=== PATIENT | male | born 1935 | race Caucasian/White ===

== ENCOUNTER 2017-11-06 12:04 | Outpatient (CLI) | payer MEDICARE ==
[2017-11-06 14:18] LABS: Bilirubin Negative (Negative); Blood, Urine Negative (Negative); Clarity CLEAR (Clear); Glucose, Urine (Dipstick) Negative (Negative); Leukocyte Negative (Negative); Nitrite Negative (Negative); Protein, Urine (Dipstick) Negative (Neg-Trace); Specific Gravity, Urine 1.015 (1.002-1.036); Urobilinogen 0.2 mg/dL (0.2-1.0)
[2017-11-06 14:20] LABS: Hemoglobin 14.7 g/dL (14.0-18.0); Mean Corpuscular HGB CONC 33.7 g/dL (32.0-36.0); Mean Corpuscular Hemoglobin 34.5 pg (27.0-31.0); Mean Platelet Volume 7.7 fL (7.4-10.4); Platelet Count 151 thou/uL (130-400); RBC Distribution Width 11.8 % (11.5-14.5); Red Blood Cell (RBC) Count 4.26 mill/uL (4.70-6.10); White Blood Cell (WBC) Count 5.5 thou/uL (4.8-10.8)
[2017-11-06 14:21] LABS: Bacteria/HPF None Seen HPF (None Seen); Hyaline Casts/LPF 0-3 HYALINE CAST LPF (0-3 Hyaline); RBC/HPF 0-3 HPF (0-3); Squamous Epithelial None Seen HPF (0-3); WBC/HPF None Seen HPF (0-3)
[2017-11-06 14:26] LABS: INR-International Normal Ratio 1.2; PTT 29.8 SEC (22.9-36.1); Prothrombin Time 15.7 SEC (12.0-14.7)
[2017-11-06 14:55] LABS: Anion Gap 11 mmol/L (10-20); BUN (Urea Nitrogen) 20 mg/dL (8.4-25.7); Calc. Creatinine Clearance 0 mL/min (70-130); Calcium 8.9 mg/dL (7.8-10.44); Carbon Dioxide 27 mmol/L (23-31); Chloride 103 mmol/L (98-107); Estimated GFR-MDRD 77; Glucose 111 mg/dL (83-110); Potassium 4.3 mmol/L (3.5-5.1); Sodium 137 mmol/L (136-145)
--- NOTE | 2018-01-05 21:51 | EKG ---
Test Reason : Blood Pressure : / mmHG Vent. Rate : 060 BPM Atrial Rate : 060 BPM P-R Int : 166 ms QRS Dur : 096 ms QT Int : 458 ms P-R-T Axes : 000 046 029 degrees QTc Int : 458 ms Electronic atrial pacemaker No previous ECGs available Confirmed by ANEL WHITFIELD M.D. ([id number]) on 01/05/2018 9:51:28 PM Referred By: DIAMOND Confirmed By:ANEL WHITFIELD M.D.
== END 2017-11-06 12:05 | disposition home or self-care (01) ==
LOC: LABBT 12:04
PROVIDERS: ATTEND Urology
DX: Z01.818 Encounter for other preprocedural examination (principal); N32.9 Bladder disorder, unspecified
CPT/HCPCS: 80048; 81001; 84153; 85027; 85610; 85730; 93005; 93010

== ENCOUNTER 2017-11-19 05:52 | Day surgery (SDC) | payer MEDICARE, OTHER ==
[2017-11-06 12:39] VITALS: BMI 29.5
[2017-11-19] MEDS ORDERED: Midazolam HCl 2 mg/2 ml Vial ONE (06:13)
[2017-11-19] MEDS ORDERED: Fentanyl 100 MCG/2 ML VIAL ONE (06:13)
[2017-11-19] MEDS ORDERED: Levofloxacin 500 mg/D5W 100 ml Premix Bag ONE (07:00)
[2017-11-19] MEDS ORDERED: Iothalamate Meglumine 60% 50 ML VIAL FS ONE (07:15)
--- NOTE | 2017-11-19 08:40 | RAD ---
INTRAOPERATIVE FLUOROSCOPY FOR IVP RETROGRADE: History: Renal calculi. Comparison: None. FINDINGS: Two fluoroscopic images are submitted for interpretation. The second of the two images demonstrates a wire projecting along the expected course of the right ureter. IMPRESSION: Fluoroscopy as above. POS: [facility]
[2017-11-19] MEDS ORDERED: Phenazopyridine HCl 97.5 MG TABLET ONE (09:04)
[2017-11-19] MEDS ORDERED: Oxybutynin 5 MG TAB ONE (09:05)
--- NOTE | 2017-11-19 09:08 | OP ---
DATE OF PROCEDURE: 11/19/2017 PREOPERATIVE DIAGNOSES: 1. History of Sumner score 3+3, T1c prostate cancer on watchful waiting. 2. History of BPH, trilobar hyperplasia, volume 89-100 grams. 3. History of microscopic hematuria. Cystoscopy demonstrating approximately 6- 8 mm surface area just superior to the right ureteral orifice, indeterminate. POSTOPERATIVE DIAGNOSES: 1. History of Sumner score 3+3, T1c prostate cancer on watchful waiting. 2. History of BPH, trilobar hyperplasia, volume 89-100 grams. 3. History of microscopic hematuria. Cystoscopy demonstrating approximately 6- 8 mm surface area just superior to the right ureteral orifice, indeterminate. PROCEDURES PERFORMED: Cystoscopy, right retrograde pyelogram, 6 x 28 double-J ureteral stent placement, bladder biopsy, fulguration of bladder biopsy site. SURGEON: Ana Kothari D.O. ANESTHESIA: LMA. COMPLICATIONS: None apparent. DISPOSITION: To the recovery room in stable condition. DRAINS: Right 6 x 28 double-J ureteral stent, 18 Croatian three-way Leroy catheter with CBI port plugged to a leg bag gravity bag. SPECIMEN: Right periureteral bladder biopsy, multiple, sent in 1 specimen cup. INDICATIONS FOR THE PROCEDURE AND HISTORY: Mr. Felix is an 81-year-old male with history of clinical T1c prostate cancer, Meghan score 3+3, low volume on watchful waiting. The patient's baseline PSA has been variable from 5.0 to 6.5. Recent PSA was 7.3. I did discuss this with the patient, at this time, he desires to continue his watchful waiting. I discussed with patient regarding consideration for restaging bone scan. Regarding his bladder lesion, we performed a CT scan due to microscopic hematuria, cytology is negative; however, there was a nonspecific right periureteral papillary/inflammatory region of unclear etiology. Although, FISH cytology negative, reassuring, advised regarding exam under anesthesia. As it abut the right ureteral orifice , I informed the patient that right retrograde pyelogram, possible stent placement would be indicated. He desired to proceed. Risks and complications including bleeding, pain, infection, injury to adjacent organs, urosepsis, bladder ureteral injury was reviewed with him in detail. All questions were answered to his satisfaction and he desired to proceed without reservations. DESCRIPTION OF THE PROCEDURE: After an informed consent is signed, the patient is taken to the operating room, placed in a dorsal lithotomy position with the genital area prepped and draped in the usual surgical sterile fashion. A 21- Croatian cystoscope was utilized for cystoscopy. Again at the level of the prostatic urethra, there was significant enlargement of the prostate with small intravesical median lobe component. Upon entering the bladder, there was immediate oozing from the median lobe. Although visualization was somewhat suboptimal, we were able to perform diagnostic cystoscopy, which demonstrated no other lesion except the previously appreciated right periureteral inflammatory area abutting the right ureteral orifice. The left UO was in normal caliber. The right UO appeared to be somewhat stenotic. Due to small caliber of the right ureteral orifice and the periureteral inflammatory lesion, I performed the retrograde pyelogram first. 0.35 sensor wire was placed into the right upper pole. A 5 f open-ended catheter was then subsequently introduced into the intramural ureter, if there was some resistance passing the right UO due to small caliber. However this was passed atraumatically. Retrograde pyelogram was performed. There were some air bubbles with the retrograde contrast opacification; however, upon subsequent imaging, there was no gross evidence of filling defect or hydronephrosis. At this time, I did make the decision to stent the ureter as the orifice is small in caliber and the lesions are abutting the ureteral orifice. A 6 x 28 double-J ureteral stent was able to be passed without difficulty. With the right ureteral orifice protected, I did obtain multiple biopsies of the right superior periureteral inflammatory lesion. It did have a papillary appearance to it. At the end of the procedure, I did not see any further nidus of the lesion. Endoscopic Bugbee was utilized to cauterize the biopsy site. Good hemostasis was noted. There was some oozing from the median lobe of the prostate and this was fulgurated as well. Given he has some oozing from the enlarged prostate, and the need to start Eliquis in a timely manner, decision was made to place the Leroy catheter as there is concern regarding postop urinary retention given his very large prostate volume in today's manipulation. An 18 Croatian three-way Leroy catheter was placed, this demonstrated transparent red urine output. CBI port was plugged and attached to gravity leg bag. He tolerated the procedure well and transported to the recovery room in stable condition. As he does have hematuria component, I will inform the patient to hold his Eliquis until urine output is relatively clear, then may resume. He is discharged with [place] 5/325 , ciprofloxacin for a course of 7 days, Colace p.r.n., AZO p.r.n. He will follow up with me next for cysto stent pull and review pathology. He is instructed that he may restart his Elliquis, if his urine output remains clear for 24 hours. JOSESITO
[2017-11-19] MEDS ORDERED: Furosemide 40 MG TAB PO SCH (10:15)
[2017-11-19] MEDS ORDERED: Spironolactone 25 MG TAB PO SCH (10:15)
[2017-11-19] MEDS ORDERED: HYDROcodone/Acetaminophen 5/325 mg Tablet ONE (10:57)
[2017-11-19] MEDS ORDERED: Dexamethasone 20 MG/5 ML VIAL ONE (15:57)
[2017-11-19] MEDS ORDERED: Lidocaine 1% PF 5 ML VIAL ONE (15:57)
[2017-11-19] MEDS ORDERED: Ondansetron HCl/PF 4 MG/2 ML Vial ONE (15:57)
[2017-11-19] MEDS ORDERED: PROPOFOL 200 MG/20 ML VIAL ONE (15:57)
== END 2017-11-19 14:25 | disposition home or self-care (01) ==
LOC: SDC 05:52
PROVIDERS: ATTEND Urology
PROC: 0TBB8ZX Excision of Bladder, Via Natural or Artificial Opening Endoscopic, Diagnostic (ICD-10-PCS; principal; 2017-11-19)
PROC: 0T768DZ Dilation of Right Ureter with Intraluminal Device, Via Natural or Artificial Opening Endoscopic (ICD-10-PCS; 2017-11-19)
DX: N32.89 Other specified disorders of bladder (principal); N40.1 Benign prostatic hyperplasia with lower urinary tract symptoms; R31.29 Other microscopic hematuria; C61 Malignant neoplasm of prostate; I10 Essential (primary) hypertension; I48.91 Unspecified atrial fibrillation; E78.5 Hyperlipidemia, unspecified; N52.9 Male erectile dysfunction, unspecified; Z79.01 Long term (current) use of anticoagulants; Z79.899 Other long term (current) drug therapy; Z95.0 Presence of cardiac pacemaker; Z90.49 Acquired absence of other specified parts of digestive tract; Z98.890 Other specified postprocedural states
CPT/HCPCS: 52204; 52332; 74420; 88305; C1758; C1769; J1100; J1956; J2001; J2250; J2405; J2704; J3010; Q9961

== ENCOUNTER 2018-01-21 09:11 | Outpatient (CLI) | payer MEDICARE, OTHER ==
--- NOTE | 2018-01-21 16:06 | NM ---
WHOLE BONE SCAN: DATE: 01/21/18. COMPARISON: 03/12/10. HISTORY: Prostate cancer with increasing PSA levels. TECHNIQUE: Following the intravenous administration of 33 mCi Technetium 99m labeled MDP, anterior and posterior whole body imaging is obtained. FINDINGS: There is physiologic activity within the kidneys and the urinary bladder. There is mild increased ra diotracer activity on posterior imaging at the lumbosacral junction on the right suggesting degenerat kelly change. There are new foci of increased radiotracer activity within multiple ribs on the right which demonstr ate a fairly linear configuration suggesting multiple rib fractures. As these findings are new, radi ographs of the ribs are advised to confirm multiple posterolateral right-sided rib fractures. There is no calvarial lesion. The pelvis and spine demonstrate no suspicious abnormality. No lesions are seen within the lower extremities. Degenerative-type change is noted in the feet and ankles. IMPRESSION: Three new lesions are noted within right ribs, probably the 10th, 9th, and 5th or 6th ribs. Interval fracture deformities is favored. Recommend confirmation with radiographs. CODE T POS: [facility]
== END 2018-01-21 09:12 | disposition home or self-care (01) ==
LOC: NM 09:11
PROVIDERS: ATTEND Urology
DX: C61 Malignant neoplasm of prostate (principal); M89.9 Disorder of bone, unspecified
CPT/HCPCS: 78306; A9503

== ENCOUNTER 2018-01-30 13:28 | Outpatient (CLI) | payer MEDICARE ==
--- NOTE | 2018-01-30 13:59 | RAD ---
LEFT RIBS THREE VIEWS: History: Prostate cancer. Abnormal bone scan. FINDINGS: No displaced rib fracture or pneumothorax are apparent. Right ribs are reported on a separate exam. POS: [facility]
--- NOTE | 2018-01-30 14:00 | RAD ---
RIGHT RIBS THREE VIEWS: History: Prostate cancer. Abnormal bone scan. Comparison: 01-21-18 FINDINGS: At the posterolateral aspect of right ribs 6, 9, and 10, cortical irregularity. Incompletely healed f ractures are present at the 9th and 10th ribs. Mild step off with callus formation was present at the cortex of the 6th rib. While these healing fractures are very subtle on radiograph, there is certainly no sclerotic mass to suggest a prostatic metastasis. IMPRESSION: 1. Old right rib fractures. POS: [facility]
== END 2018-01-30 13:29 | disposition home or self-care (01) ==
LOC: RAD 13:28
PROVIDERS: ATTEND Urology
DX: C61 Malignant neoplasm of prostate (principal)

== ENCOUNTER 2021-10-15 16:44 | Emergency (ER) | payer MEDICARE, OTHER ==
[2021-10-15] MEDS ORDERED: Xylocaine 1% w/ Epi 1:100K 10 ML VIAL ONE (17:50)
[2021-10-15 18:30] LABS: #Eosinphils 0.2 thou/uL (0.0-0.7); #Lymphocytes 0.8 thou/uL (1.20-3.40); #Monocytes 0.8 thou/uL (0.11-0.59); %Basophils 0.5 % (0.0-1.0); %Eosinophils 2.6 % (0.0-10.0); %Lymphocytes 10.6 % (21.0-51.0); %Monocytes 10.3 % (0.0-10.0); Hemoglobin 12.9 g/dL (14.0-18.0); Mean Corpuscular HGB CONC 34.2 g/dL (32.0-36.0); Mean Corpuscular Hemoglobin 34.1 pg (27.0-31.0); Mean Corpuscular Volume 99.6 fL (78.0-98.0); Mean Platelet Volume 6.5 fL (7.4-10.4); Platelet Count 189 thou/uL (130-400); RBC Distribution Width 11.7 % (11.5-14.5); Red Blood Cell (RBC) Count 3.77 mill/uL (4.70-6.10); White Blood Cell (WBC) Count 7.9 thou/uL (4.8-10.8)
[2021-10-15 18:51] LABS: ALT (SGPT) 13 U/L (8-55); AST (SGOT) 14 U/L (5-34); Albumin 3.3 g/dL (3.4-4.8); Alkaline Phosphatase 58 U/L (40-110); Anion Gap 11 mmol/L (10-20); BUN (Urea Nitrogen) 29 mg/dL (8.4-25.7); Bilirubin, Total 1.1 mg/dL (0.2-1.2); CK (CPK) 38 U/L (30-200); Calc. Creatinine Clearance 0 mL/min (70-130); Calcium 9.4 mg/dL (7.8-10.44); Carbon Dioxide 28 mmol/L (23-31); Chloride 102 mmol/L (98-107); Glucose 118 mg/dL (83-110); Magnesium 1.8 mg/dL (1.6-2.6); Potassium 4.1 mmol/L (3.5-5.1); Protein, Total 6.3 g/dL (5.8-8.1); Sodium 137 mmol/L (136-145)
[2021-10-15 19:52] LABS: Bilirubin Negative (Negative); Blood, Urine Negative (Negative); Clarity Clear (Clear); Glucose, Urine (Dipstick) Normal (Negative); Ketone, Urine Negative (Negative); Leukocyte Negative Leu/uL (Negative); Nitrite Negative (Negative); Protein, Urine (Dipstick) 20 mg/dL (Neg-Trace); Specific Gravity, Urine 1.018 (1.002-1.036); Urobilinogen Normal mg/dL (Less than 2)
[2021-10-15] MEDS ORDERED: Boostrix 0.5 ML (Tdap) VIAL ONE (19:53)
== END 2021-10-15 20:35 | disposition home or self-care (01) ==
LOC: ERS 16:44
DX: S01.01XA Laceration without foreign body of scalp, initial encounter (principal); I10 Essential (primary) hypertension; E78.5 Hyperlipidemia, unspecified; W01.0XXA Fall on same level from slipping, tripping and stumbling without subsequent striking against object, initial encounter
CPT/HCPCS: 12032; 36415; 70450; 71045; 72125; 80053; 81003; 82550; 83735; 84443; 84484; 85025; 90471; 90715; 93005

== ENCOUNTER 2022-01-31 10:42 | Outpatient (CLI) | payer MEDICARE, OTHER | END 2022-01-31 10:43 | disposition home or self-care (01) | LOC: BICRAD 10:42 | PROVIDERS: ATTEND Internal Medicine | DX: M54.9 Dorsalgia, unspecified (principal); M47.816 Spondylosis without myelopathy or radiculopathy, lumbar region | CPT/HCPCS: 72072; 72100 ==

== ENCOUNTER 2022-08-20 05:33 | Inpatient (IN) | payer MEDICARE ==
[2022-08-20 09:07] VITALS: BMI 25.1
[2022-08-20] MEDS ORDERED: Ondansetron PF 4 MG/2 ML Vial IVP PRN (09:17)
[2022-08-20] MEDS ORDERED: hydrALAZINE 20 MG/ML VIAL SLOW IVP PRN (09:17)
[2022-08-20] MEDS ORDERED: Morphine 2 MG/ML VIAL SLOW IVP PRN (09:17)
[2022-08-20] MEDS ORDERED: Ketorolac Tromethamine 30 MG/ML VIAL IVP PRN (09:22)
[2022-08-20] MEDS ORDERED: TETANUS, DIPHTHERIA TOX,ADULT (TDVAX) 0.5 ML VIAL IM ONE (10:00)
[2022-08-20] MEDS: Dextrose 5 %-0.45 % NaCl 1,000 ML IV SCH ×3 (11:16→21:42)
[2022-08-20] MEDS: Lorazepam 2 MG/ML VIAL SLOW IVP PRN (16:52)
[2022-08-20] MEDS ORDERED: Tamsulosin HCl 0.4 MG CAP PO SCH (21:00)
[2022-08-20] MEDS: Dofetilide 0.125 MG CAP PO SCH (21:36)
[2022-08-21] MEDS: Dextrose 5 %-0.45 % NaCl 1,000 ML IV SCH (06:18)
[2022-08-21 07:15] LABS: #Basophils 0.1 thou/uL (0.0-0.2); #Eosinphils 0.2 thou/uL (0.0-0.7); #Lymphocytes 1.4 thou/uL (1.20-3.40); #Monocytes 0.9 thou/uL (0.11-0.59); #Neutrophils 6.7 thou/uL (1.40-6.50); %Basophils 0.6 % (0.0-1.0); %Eosinophils 2.2 % (0.0-10.0); %Lymphocytes 15.6 % (21.0-51.0); %Monocytes 9.2 % (0.0-10.0); %Neutrophils 72.5 % (42.0-75.0); Hemoglobin 12.6 g/dL (14.0-18.0); Mean Corpuscular HGB CONC 32.3 g/dL (32.0-36.0); Mean Platelet Volume 7.7 fL (7.4-10.4); Platelet Count 171 10x3/uL (130-400); Red Blood Cell (RBC) Count 3.72 mill/uL (4.70-6.10); White Blood Cell (WBC) Count 9.3 10x3/uL (4.8-10.8)
[2022-08-21 07:36] LABS: ALT (SGPT) Less than 7 U/L (8-55); AST (SGOT) 13 U/L (5-34); Albumin 3.1 g/dL (3.4-4.8); Alkaline Phosphatase 43 U/L (40-110); Anion Gap 10 mmol/L (10-20); BUN (Urea Nitrogen) 26 mg/dL (8.4-25.7); Bilirubin, Total 1.3 mg/dL (0.2-1.2); Calc. Creatinine Clearance 56 mL/min (70-130); Calcium 8.7 mg/dL (7.8-10.44); Carbon Dioxide 27 mmol/L (23-31); Chloride 103 mmol/L (98-107); Estimated GFR 76; Globulin 2.7 g/dL (2.4-3.5); Glucose 137 mg/dL (83-110); Potassium 3.8 mmol/L (3.5-5.1); Protein, Total 5.8 g/dL (5.8-8.1); Sodium 136 mmol/L (136-145)
[2022-08-21] MEDS ORDERED: Pantoprazole 40 MG VIAL IVP SCH (09:00)
[2022-08-21] MEDS ORDERED: Finasteride 5 MG TAB PO SCH (09:00)
[2022-08-21] MEDS ORDERED: MD-Gastroview 120 ML BOT ONE (11:26)
[2022-08-21] MEDS: Dofetilide 0.125 MG CAP PO SCH ×2 (11:33→21:25)
[2022-08-21] MEDS: Lorazepam 2 MG/ML VIAL SLOW IVP PRN ×2 (15:48→21:26)
[2022-08-21] MEDS: Tamsulosin HCl 0.4 MG CAP PO SCH (21:26)
[2022-08-21] MEDS: Finasteride 5 MG TAB PO SCH (21:26)
[2022-08-22] MEDS: Cholecalciferol 1,000 UNITS (25 MCG) TAB PO SCH (08:53)
[2022-08-22] MEDS: Spironolactone 25 MG TAB PO SCH (08:53)
[2022-08-22] MEDS: Furosemide 20 MG TAB PO SCH (08:54)
[2022-08-22] MEDS: Dofetilide 0.125 MG CAP PO SCH ×2 (08:54→20:16)
[2022-08-22] MEDS: Loratadine 10 MG TAB PO SCH (08:54)
[2022-08-22] MEDS: Cyanocobalamin (Vitamin B-12) 1,000 MCG TAB PO SCH (08:54)
[2022-08-22] MEDS ORDERED: Acetaminophen 500 MG TAB PO PRN (20:09)
[2022-08-22] MEDS: Tamsulosin HCl 0.4 MG CAP PO SCH (20:16)
[2022-08-22] MEDS: Finasteride 5 MG TAB PO SCH (20:16)
[2022-08-23 06:44] LABS: Anion Gap 11 mmol/L (10-20); BUN (Urea Nitrogen) 21 mg/dL (8.4-25.7); Calc. Creatinine Clearance 67 mL/min (70-130); Calcium 8.7 mg/dL (7.8-10.44); Carbon Dioxide 23 mmol/L (23-31); Chloride 106 mmol/L (98-107); Estimated GFR 85; Glucose 118 mg/dL (83-110); Potassium 3.8 mmol/L (3.5-5.1); Sodium 136 mmol/L (136-145)
[2022-08-23] MEDS: Furosemide 20 MG TAB PO SCH (08:48)
[2022-08-23] MEDS: Cyanocobalamin (Vitamin B-12) 1,000 MCG TAB PO SCH (08:48)
[2022-08-23] MEDS: Cholecalciferol 1,000 UNITS (25 MCG) TAB PO SCH (08:48)
[2022-08-23] MEDS: Loratadine 10 MG TAB PO SCH (08:49)
[2022-08-23] MEDS: Dofetilide 0.125 MG CAP PO SCH ×2 (08:49→20:42)
[2022-08-23] MEDS: Spironolactone 25 MG TAB PO SCH (08:49)
[2022-08-23] MEDS: Tamsulosin HCl 0.4 MG CAP PO SCH (20:43)
[2022-08-23] MEDS: diphenhydrAMINE 25 MG CAP PO PRN (20:43)
[2022-08-23] MEDS: Finasteride 5 MG TAB PO SCH (20:43)
[2022-08-24] MEDS ORDERED: Lorazepam 2 MG/ML VIAL SLOW IVP SCH (01:45)
[2022-08-24] MEDS: Cyanocobalamin (Vitamin B-12) 1,000 MCG TAB PO SCH (09:17)
[2022-08-24] MEDS: Spironolactone 25 MG TAB PO SCH (09:17)
[2022-08-24] MEDS: Loratadine 10 MG TAB PO SCH (09:17)
[2022-08-24] MEDS: Furosemide 20 MG TAB PO SCH (09:18)
[2022-08-24] MEDS: Dofetilide 0.125 MG CAP PO SCH ×2 (09:18→20:59)
[2022-08-24] MEDS: Cholecalciferol 1,000 UNITS (25 MCG) TAB PO SCH (09:19)
[2022-08-24] MEDS: diphenhydrAMINE 25 MG CAP PO PRN (20:59)
[2022-08-24] MEDS: Tamsulosin HCl 0.4 MG CAP PO SCH (20:59)
[2022-08-24] MEDS: Finasteride 5 MG TAB PO SCH (20:59)
[2022-08-24] MEDS: Apixaban 5 MG TAB PO SCH (20:59)
[2022-08-24] MEDS: Melatonin 3 MG TAB PO SCH (21:00)
[2022-08-25] MEDS: Dofetilide 0.125 MG CAP PO SCH ×2 (08:50→21:20)
[2022-08-25] MEDS: Cholecalciferol 1,000 UNITS (25 MCG) TAB PO SCH (08:50)
[2022-08-25] MEDS: Loratadine 10 MG TAB PO SCH (08:50)
[2022-08-25] MEDS: Spironolactone 25 MG TAB PO SCH (08:51)
[2022-08-25] MEDS: Apixaban 5 MG TAB PO SCH ×2 (08:51→21:21)
[2022-08-25] MEDS: Furosemide 20 MG TAB PO SCH (08:51)
[2022-08-25] MEDS: Cyanocobalamin (Vitamin B-12) 1,000 MCG TAB PO SCH (08:51)
[2022-08-25] MEDS ORDERED: diphenhydrAMINE 25 MG CAP PO PRN (18:11)
[2022-08-25] MEDS: Tamsulosin HCl 0.4 MG CAP PO SCH (21:20)
[2022-08-25] MEDS: diphenhydrAMINE 25 MG CAP PO PRN (21:20)
[2022-08-25] MEDS: Finasteride 5 MG TAB PO SCH (21:21)
[2022-08-25] MEDS: Melatonin 3 MG TAB PO SCH (21:21)
[2022-08-26] MEDS: Cholecalciferol 1,000 UNITS (25 MCG) TAB PO SCH (08:45)
[2022-08-26] MEDS: Furosemide 20 MG TAB PO SCH (08:45)
[2022-08-26] MEDS: Dofetilide 0.125 MG CAP PO SCH ×2 (08:46→20:23)
[2022-08-26] MEDS: Spironolactone 25 MG TAB PO SCH (08:46)
[2022-08-26] MEDS: Cyanocobalamin (Vitamin B-12) 1,000 MCG TAB PO SCH (08:46)
[2022-08-26] MEDS: Loratadine 10 MG TAB PO SCH (08:46)
[2022-08-26] MEDS: Apixaban 5 MG TAB PO SCH ×2 (08:46→20:21)
[2022-08-26] MEDS: Finasteride 5 MG TAB PO SCH (20:22)
[2022-08-26] MEDS: Tamsulosin HCl 0.4 MG CAP PO SCH (20:22)
[2022-08-26] MEDS: Melatonin 3 MG TAB PO SCH (20:22)
[2022-08-27 08:41] VITALS: BP 117/62; TEMP 97.9
[2022-08-27] MEDS: Dofetilide 0.125 MG CAP PO SCH (08:47)
[2022-08-27] MEDS: Spironolactone 25 MG TAB PO SCH (08:48)
[2022-08-27] MEDS: Cyanocobalamin (Vitamin B-12) 1,000 MCG TAB PO SCH (08:48)
[2022-08-27] MEDS: Furosemide 20 MG TAB PO SCH (08:48)
[2022-08-27] MEDS: Loratadine 10 MG TAB PO SCH (08:48)
[2022-08-27] MEDS: Cholecalciferol 1,000 UNITS (25 MCG) TAB PO SCH (08:48)
[2022-08-27] MEDS: Apixaban 5 MG TAB PO SCH (08:49)
== END 2022-08-27 16:45 | DRG 389 ==
LOC: T4-A 07:43
PROVIDERS: ADMIT Specialist; ATTEND Specialist
PROC: 0D9670Z Drainage of Stomach with Drainage Device, Via Natural or Artificial Opening (ICD-10-PCS; principal; 2022-08-20)
DX: K56.600 Partial intestinal obstruction, unspecified as to cause (principal); I48.20 Chronic atrial fibrillation, unspecified; Z20.822 Contact with and (suspected) exposure to COVID-19; F03.90 Unspecified dementia, unspecified severity, without behavioral disturbance, psychotic disturbance, mood disturbance, and anxiety; N40.0 Benign prostatic hyperplasia without lower urinary tract symptoms; Z90.49 Acquired absence of other specified parts of digestive tract; Z95.0 Presence of cardiac pacemaker; Z79.899 Other long term (current) drug therapy; Z79.01 Long term (current) use of anticoagulants; Z85.46 Personal history of malignant neoplasm of prostate; Z98.890 Other specified postprocedural states
CPT/HCPCS: 36415; 74022; 74250; 80048; 80053; 85025; 87811; C9113; J1885; J2060; J7042; J8499; Q9963; U0003; U0005

== ENCOUNTER 2022-10-02 18:14 | Emergency (ER) | payer MEDICARE ==
[~2022-10-02 18:14] MED LIST: Iopamidol-370 76% 500 ML 1 ML ONE
[2022-10-02 18:52] LABS: #Eosinphils 0.2 thou/uL (0.0-0.7); #Monocytes 0.7 thou/uL (0.11-0.59); #Neutrophils 5.8 thou/uL (1.40-6.50); %Basophils 0.3 % (0.0-1.0); %Eosinophils 2.9 % (0.0-10.0); %Lymphocytes 12.9 % (21.0-51.0); %Monocytes 8.5 % (0.0-10.0); %Neutrophils 75.3 % (42.0-75.0); Hemoglobin 14.1 g/dL (14.0-18.0); Mean Corpuscular Hemoglobin 33.8 pg (27.0-31.0); Mean Platelet Volume 7.3 fL (7.4-10.4); Platelet Count 238 10x3/uL (130-400); RBC Distribution Width 12.1 % (11.5-14.5); Red Blood Cell (RBC) Count 4.16 mill/uL (4.70-6.10); White Blood Cell (WBC) Count 7.7 10x3/uL (4.8-10.8)
[2022-10-02 19:13] LABS: Acetaminophen Less than 10.0 mcg/mL (10.0-30.0); Alcohol Less than 10 mg/dL (Less than 10); Salicylate Less than 8.0 mg/dL (15.0-30.0)
[2022-10-02 19:57] LABS: Bilirubin Negative (Negative); Blood, Urine Negative (Negative); Clarity Clear (Clear); Glucose, Urine (Dipstick) Normal (Negative); Ketone, Urine Negative (Negative); Leukocyte Negative Leu/uL (Negative); Nitrite Negative (Negative); Protein, Urine (Dipstick) Negative (Neg-Trace); Specific Gravity, Urine 1.012 (1.002-1.036); Urobilinogen Normal mg/dL (Less than 2)
[2022-10-02 20:04] LABS: ALT (SGPT) Less than 7 U/L (8-55); AST (SGOT) 17 U/L (5-34); Albumin 3.8 g/dL (3.4-4.8); Alkaline Phosphatase 59 U/L (40-110); Anion Gap 16 mmol/L (10-20); BUN (Urea Nitrogen) 18 mg/dL (8.4-25.7); Bilirubin, Total 1.1 mg/dL (0.2-1.2); Calc. Creatinine Clearance 0 mL/min (70-130); Calcium 9.5 mg/dL (7.8-10.44); Carbon Dioxide 23 mmol/L (23-31); Chloride 103 mmol/L (98-107); Estimated GFR 80; Globulin 3.7 g/dL (2.4-3.5); Glucose 109 mg/dL (83-110); Protein, Total 7.5 g/dL (5.8-8.1); Sodium 137 mmol/L (136-145)
[2022-10-02 20:05] LABS: Amphetamine Not Detected (NotDetected); Barbiturates Screen Not Detected (NotDetected); Benzodiazepine Screen Not Detected (NotDetected); Cocaine Metabolite Screen Not Detected (NotDetected); Methadone Not Detected (NotDetected); Methamphetamine Not Detected (NotDetected); Opiate Screen Not Detected (NotDetected); Oxycodone Screen Not Detected (NotDetected); Phencyclidine (PCP) Not Detected (NotDetected); THC/Cannabinoid Screen Not Detected (NotDetected); Tricyclic Screen Not Detected (NotDetected)
[2022-10-02] MEDS ORDERED: Morphine 4 MG/ML VIAL ONE (20:14)
[2022-10-02] MEDS ORDERED: Ondansetron PF 4 MG/2 ML Vial ONE (20:20)
[2022-10-02] MEDS ORDERED: Midazolam HCl 2 mg/2 ml Vial ONE (21:30)
== END 2022-10-03 00:21 | disposition home or self-care (01) ==
LOC: ERS 18:14
DX: R91.8 Other nonspecific abnormal finding of lung field (principal); M54.6 Pain in thoracic spine; I10 Essential (primary) hypertension; Z79.01 Long term (current) use of anticoagulants
CPT/HCPCS: 36415; 70450; 71045; 71260; 74177; 80053; 80306; 80307; 81003; 82140; 84484; 85025; 93005; 94760; 96374; 96375; J2250; J2270; J2405; Q9967

== ENCOUNTER 2022-10-24 11:00 | Outpatient (CLI) | payer MEDICARE | END 2022-10-24 11:01 | LOC: PET 11:00 | PROVIDERS: ATTEND Internal Medicine Critical Care Medicine | DX: R91.8 Other nonspecific abnormal finding of lung field (principal); C34.92 Malignant neoplasm of unspecified part of left bronchus or lung; C79.72 Secondary malignant neoplasm of left adrenal gland; C77.1 Secondary and unspecified malignant neoplasm of intrathoracic lymph nodes | CPT/HCPCS: 78815; A9552 ==

== ENCOUNTER 2022-10-30 13:55 | Emergency (ER) | payer MEDICARE ==
[2022-10-30 15:22] LABS: Bilirubin Negative (Negative); Blood, Urine Negative (Negative); Clarity Clear (Clear); Glucose, Urine (Dipstick) Normal (Negative); Ketone, Urine Negative (Negative); Leukocyte Negative Leu/uL (Negative); Nitrite Negative (Negative); Protein, Urine (Dipstick) Negative (Neg-Trace); Specific Gravity, Urine 1.021 (1.002-1.036); Urobilinogen Normal mg/dL (Less than 2); pH, Urine 5.5 (5.0-9.0)
[2022-10-30 15:40] LABS: Amphetamine Not Detected (NotDetected); Barbiturates Screen Not Detected (NotDetected); Benzodiazepine Screen Detected (NotDetected); Cocaine Metabolite Screen Not Detected (NotDetected); Methadone Not Detected (NotDetected); Methamphetamine Not Detected (NotDetected); Opiate Screen Not Detected (NotDetected); Oxycodone Screen Not Detected (NotDetected); Phencyclidine (PCP) Not Detected (NotDetected); THC/Cannabinoid Screen Not Detected (NotDetected); Tricyclic Screen Not Detected (NotDetected)
[2022-10-30 15:54] LABS: #Basophils 0.1 thou/uL (0.0-0.2); #Eosinphils 0.3 thou/uL (0.0-0.7); #Lymphocytes 1.4 thou/uL (1.20-3.40); #Monocytes 0.8 thou/uL (0.11-0.59); #Neutrophils 5.1 thou/uL (1.40-6.50); %Basophils 0.8 % (0.0-1.0); %Eosinophils 3.8 % (0.0-10.0); %Lymphocytes 18.1 % (21.0-51.0); %Neutrophils 67.3 % (42.0-75.0); Hemoglobin 12.6 g/dL (14.0-18.0); Mean Corpuscular HGB CONC 32.4 g/dL (32.0-36.0); Mean Corpuscular Hemoglobin 33.8 pg (27.0-31.0); Mean Platelet Volume 8.1 fL (7.4-10.4); Platelet Count 153 10x3/uL (130-400); RBC Distribution Width 12.2 % (11.5-14.5); Red Blood Cell (RBC) Count 3.74 mill/uL (4.70-6.10); White Blood Cell (WBC) Count 7.5 10x3/uL (4.8-10.8)
[2022-10-30 16:14] LABS: ALT (SGPT) Less than 7 U/L (8-55); AST (SGOT) 12 U/L (5-34); Albumin 3.3 g/dL (3.4-4.8); Alkaline Phosphatase 58 U/L (40-110); Anion Gap 12 mmol/L (10-20); BUN (Urea Nitrogen) 29 mg/dL (8.4-25.7); Bilirubin, Total 0.9 mg/dL (0.2-1.2); Calc. Creatinine Clearance 0 mL/min (70-130); Calcium 9.1 mg/dL (7.8-10.44); Carbon Dioxide 22 mmol/L (23-31); Chloride 106 mmol/L (98-107); Estimated GFR 75; Globulin 3.1 g/dL (2.4-3.5); Glucose 95 mg/dL (83-110); Lipase 25 U/L (8-78); Potassium 4.6 mmol/L (3.5-5.1); Protein, Total 6.4 g/dL (5.8-8.1); Sodium 135 mmol/L (136-145)
== END 2022-10-30 18:50 | disposition home or self-care (01) ==
LOC: ERS 13:55
DX: E86.0 Dehydration (principal); R41.82 Altered mental status, unspecified; I10 Essential (primary) hypertension; Z79.01 Long term (current) use of anticoagulants
CPT/HCPCS: 36415; 51701; 70450; 71045; 80053; 80306; 81003; 83605; 83690; 83880; 84484; 85025; 87086; 87186; 93005

== ENCOUNTER 2022-12-06 06:01 | Inpatient (IN) | payer MEDICARE ==
[2022-12-06] MEDS ORDERED: Ziprasidone 20 MG VIAL ONE (07:38)
[2022-12-06] MEDS ORDERED: Sterile Water 10 ML ONE (07:40)
[2022-12-06] MEDS ORDERED: Ondansetron PF 4 MG/2 ML Vial IVP PRN (07:57)
[2022-12-06] MEDS ORDERED: Morphine 2 MG/ML VIAL SLOW IVP PRN (07:57)
[2022-12-06] MEDS ORDERED: Ipratropium/Albuterol 3 ML NEB NEB PRN (07:57)
[2022-12-06] MEDS ORDERED: TETANUS, DIPHTHERIA TOX,ADULT (TDVAX) 0.5 ML VIAL IM ONE (07:57)
[2022-12-06] MEDS ORDERED: Sodium Chloride 0.9% 1,000 ML IV SCH (08:00)
[2022-12-06] MEDS ORDERED: Acetaminophen 325 MG TAB PO SCH (08:00)
[2022-12-06 08:26] LABS: #Eosinphils 0.1 thou/uL (0.0-0.7); #Lymphocytes 0.7 thou/uL (1.20-3.40); #Monocytes 0.6 thou/uL (0.11-0.59); #Neutrophils 10.3 thou/uL (1.40-6.50); %Basophils 0.3 % (0.0-1.0); %Eosinophils 0.9 % (0.0-10.0); %Lymphocytes 6.2 % (21.0-51.0); %Monocytes 4.9 % (0.0-10.0); %Neutrophils 87.7 % (42.0-75.0); Hemoglobin 12.6 g/dL (14.0-18.0); Mean Corpuscular Hemoglobin 33.6 pg (27.0-31.0); Mean Platelet Volume 7.9 fL (7.4-10.4); Platelet Count 144 10x3/uL (130-400); RBC Distribution Width 12.3 % (11.5-14.5); Red Blood Cell (RBC) Count 3.75 mill/uL (4.70-6.10); White Blood Cell (WBC) Count 11.7 10x3/uL (4.8-10.8)
[2022-12-06 08:34] LABS: INR-International Normal Ratio 1.3; PTT 29.9 sec (22.9-36.1); Prothrombin Time 16.4 sec (12.0-14.7)
[2022-12-06 08:40] LABS: Phosphorus 2.4 mg/dL (2.3-4.7)
[2022-12-06 08:43] LABS: ALT (SGPT) 7 U/L (8-55); AST (SGOT) 12 U/L (5-34); Albumin 3.6 g/dL (3.4-4.8); Alkaline Phosphatase 61 U/L (40-110); Anion Gap 12 mmol/L (10-20); BUN (Urea Nitrogen) 25 mg/dL (8.4-25.7); Calc. Creatinine Clearance 0 mL/min (70-130); Calcium 9.1 mg/dL (7.8-10.44); Carbon Dioxide 24 mmol/L (23-31); Chloride 104 mmol/L (98-107); Estimated GFR 83; Globulin 2.9 g/dL (2.4-3.5); Glucose 132 mg/dL (83-110); Magnesium 1.7 mg/dL (1.6-2.6); Potassium 3.7 mmol/L (3.5-5.1); Protein, Total 6.5 g/dL (5.8-8.1); Sodium 136 mmol/L (136-145)
[2022-12-06 09:19] LABS: Bilirubin Negative (Negative); Blood, Urine Negative (Negative); Glucose, Urine (Dipstick) Negative (Negative); Ketone, Urine 15 mg/dL (Negative); Leukocyte Negative (Negative); Nitrite Negative (Negative); Protein, Urine (Dipstick) Negative (Neg-Trace); pH, Urine 6.5 (5.0-9.0)
[2022-12-06 09:21] LABS: Clarity Clear (Clear)
[2022-12-06 09:33] LABS: Bacteria/HPF None Seen HPF (None Seen); RBC/HPF None Seen HPF (0-3); WBC/HPF None Seen HPF (0-3)
[2022-12-06 09:51] LABS: SARS-CoV-2 NAA Rapid Test Not Detected (NotDetected)
[2022-12-06 10:48] VITALS: BMI 25.0
[2022-12-06] MEDS: Famotidine/PF 20 mg/2ml Vial SLOW IVP SCH ×2 (12:10→19:40)
[2022-12-06] MEDS: Acetaminophen 500 MG TAB PO SCH ×3 (12:24→23:21)
[2022-12-06] MEDS ORDERED: CEFAZOLIN 2 GM in Sodium Chloride 0.9% 100 ML IVPB SCH (12:30)
[2022-12-06] MEDS: Tamsulosin HCl 0.4 MG CAP PO SCH (19:40)
[2022-12-06] MEDS: Finasteride 5 MG TAB PO SCH (19:40)
[2022-12-06] MEDS ORDERED: Mirtazapine 30 MG Soltab PO SCH (21:00)
[2022-12-07] MEDS: Acetaminophen 500 MG TAB PO SCH ×4 (05:14→23:00)
[2022-12-07] MEDS: Famotidine/PF 20 mg/2ml Vial SLOW IVP SCH ×2 (08:48→19:45)
[2022-12-07] MEDS: Sodium Chloride 0.9% 1,000 ML IV SCH ×2 (12:08→21:14)
[2022-12-07 16:59] LABS: Actual Bicarbonate (HCO3a) 25.6 mEq/L (22-28); Base Excess (BEa) 2.5 mEq/L (-2.0 to +3.0); Calcium, Ionized (arterial) 1.18 mmol/L (1.12-1.30); Hemoglobin (Hb) 11.1 g/dL (14.0-18.0); O2 Tension (PaO2), arterial 78.5 mmHg (> 60.0); Potassium - ABG Lab 3.97 mmol/L (3.70-5.30); pH, Arterial 7.49 (7.35-7.45)
[2022-12-07 17:06] LABS: Puncture Site RRA
[2022-12-07] MEDS ORDERED: Hydrocortisone Sod Succ/PF 100 mg/2 ml Vial IVP SCH (17:15)
[2022-12-07] MEDS: Hydrocortisone Sod Succ/PF 100 mg/2 ml Vial IVP SCH (17:48)
[2022-12-07 19:44] LABS: Anion Gap 12 mmol/L (10-20); BUN (Urea Nitrogen) 30 mg/dL (8.4-25.7); Calc. Creatinine Clearance 52 mL/min (70-130); Calcium 8.3 mg/dL (7.8-10.44); Carbon Dioxide 22 mmol/L (23-31); Chloride 109 mmol/L (98-107); Estimated GFR 74; Glucose 111 mg/dL (83-110); Sodium 139 mmol/L (136-145)
[2022-12-07] MEDS: Tamsulosin HCl 0.4 MG CAP PO SCH (19:44)
[2022-12-07] MEDS: Finasteride 5 MG TAB PO SCH (19:44)
[2022-12-07] MEDS: Ipratropium/Albuterol 3 ML NEB NEB SCH ×2 (20:10→22:35)
[2022-12-07] MEDS ORDERED: Magnesium 2 GM/50 ML(in water) 2 GM in Premix Bag 1 BAG IVPB SCH (21:00)
[2022-12-08] MEDS: Hydrocortisone Sod Succ/PF 100 mg/2 ml Vial IVP SCH ×3 (01:56→18:17)
[2022-12-08] MEDS: Acetaminophen 500 MG TAB PO SCH ×3 (02:56→18:17)
[2022-12-08] MEDS: Ipratropium/Albuterol 3 ML NEB NEB SCH ×6 (04:10→23:05)
[2022-12-08 06:10] LABS: #Lymphocytes 0.6 thou/uL (1.20-3.40); #Monocytes 0.5 thou/uL (0.11-0.59); #Neutrophils 8.3 thou/uL (1.40-6.50); %Eosinophils 0.2 % (0.0-10.0); %Lymphocytes 6.4 % (21.0-51.0); %Monocytes 5.7 % (0.0-10.0); %Neutrophils 87.7 % (42.0-75.0); Mean Corpuscular Hemoglobin 34.1 pg (27.0-31.0); Mean Platelet Volume 8.4 fL (7.4-10.4); Platelet Count 115 10x3/uL (130-400); RBC Distribution Width 12.5 % (11.5-14.5); Red Blood Cell (RBC) Count 2.94 mill/uL (4.70-6.10); White Blood Cell (WBC) Count 9.5 10x3/uL (4.8-10.8)
[2022-12-08 06:14] LABS: INR-International Normal Ratio 1.5
[2022-12-08 06:15] LABS: PTT 35.6 sec (22.9-36.1)
[2022-12-08 06:26] LABS: Anion Gap 13 mmol/L (10-20); BUN (Urea Nitrogen) 31 mg/dL (8.4-25.7); Calc. Creatinine Clearance 55 mL/min (70-130); Calcium 8.4 mg/dL (7.8-10.44); Carbon Dioxide 21 mmol/L (23-31); Chloride 111 mmol/L (98-107); Estimated GFR 77; Glucose 172 mg/dL (83-110); Magnesium 2.2 mg/dL (1.6-2.6); Phosphorus 2.8 mg/dL (2.3-4.7); Potassium 3.9 mmol/L (3.5-5.1); Sodium 141 mmol/L (136-145)
[2022-12-08] MEDS ORDERED: fentaNYL PF 100 MCG/2 ML SYRINGE ONE (07:29)
[2022-12-08] MEDS ORDERED: CEFAZOLIN 2 GM VIAL ONE (08:09)
[2022-12-08] MEDS ORDERED: Sodium Chloride 0.9% 100 ML ONE (08:09)
[2022-12-08] MEDS ORDERED: Promethazine HCl 25 MG/ML VIAL IM PRN (08:13)
[2022-12-08] MEDS ORDERED: Ondansetron HCl/PF 4 MG/2 ML Vial IVP PRN (08:13)
[2022-12-08] MEDS ORDERED: Dexamethasone 20 MG/5 ML VIAL ONE (08:26)
[2022-12-08] MEDS ORDERED: PHENYLEPHRINE-NS 100 MCG/ML 10 ML SYRINGE ONE (08:26)
[2022-12-08] MEDS: Famotidine/PF 20 mg/2ml Vial SLOW IVP SCH ×2 (11:50→20:23)
[2022-12-08] MEDS ORDERED: Metoprolol Tartrate 25 MG TAB PO SCH ×2 (12:21→21:00)
[2022-12-08] MEDS: Ibuprofen 200 MG TAB PO PRN (14:01)
[2022-12-08] MEDS: CEFAZOLIN 2 GM in Sodium Chloride 0.9% 100 ML IVPB SCH ×2 (14:01→20:21)
[2022-12-08] MEDS: Tamsulosin HCl 0.4 MG CAP PO SCH ×2 (20:20→20:21)
[2022-12-08] MEDS: Finasteride 5 MG TAB PO SCH (20:21)
[2022-12-09] MEDS: Acetaminophen 500 MG TAB PO SCH ×4 (00:12→17:59)
[2022-12-09] MEDS: Hydrocortisone Sod Succ/PF 100 mg/2 ml Vial IVP SCH ×3 (01:27→17:58)
[2022-12-09] MEDS: Ipratropium/Albuterol 3 ML NEB NEB SCH ×6 (03:15→22:25)
[2022-12-09] MEDS: Metoprolol Tartrate 25 MG TAB PO SCH ×2 (10:23→20:59)
[2022-12-09] MEDS: Famotidine/PF 20 mg/2ml Vial SLOW IVP SCH ×2 (10:23→21:00)
[2022-12-09 14:25] LABS: Hemoglobin 9.6 g/dL (14.0-18.0)
[2022-12-09] MEDS: Finasteride 5 MG TAB PO SCH (21:00)
[2022-12-10] MEDS: Hydrocortisone Sod Succ/PF 100 mg/2 ml Vial IVP SCH (02:50)
[2022-12-10] MEDS: Ibuprofen 200 MG TAB PO PRN (02:55)
[2022-12-10] MEDS: Ipratropium/Albuterol 3 ML NEB NEB SCH ×6 (03:00→22:36)
[2022-12-10] MEDS: Acetaminophen 500 MG TAB PO SCH ×4 (06:06→17:23)
[2022-12-10 06:56] LABS: #Basophils 0.1 thou/uL (0.0-0.2); #Lymphocytes 0.5 thou/uL (1.20-3.40); #Monocytes 0.9 thou/uL (0.11-0.59); #Neutrophils 10.7 thou/uL (1.40-6.50); %Basophils 0.5 % (0.0-1.0); %Eosinophils 0.1 % (0.0-10.0); %Lymphocytes 3.7 % (21.0-51.0); %Monocytes 7.3 % (0.0-10.0); %Neutrophils 88.5 % (42.0-75.0); Hemoglobin 8.5 g/dL (14.0-18.0); Mean Corpuscular HGB CONC 32.1 g/dL (32.0-36.0); Mean Corpuscular Hemoglobin 33.2 pg (27.0-31.0); Mean Platelet Volume 8.4 fL (7.4-10.4); Platelet Count 163 10x3/uL (130-400); RBC Distribution Width 12.4 % (11.5-14.5); Red Blood Cell (RBC) Count 2.54 mill/uL (4.70-6.10); White Blood Cell (WBC) Count 12.1 10x3/uL (4.8-10.8)
[2022-12-10 07:19] LABS: Anion Gap 13 mmol/L (10-20); BUN (Urea Nitrogen) 45 mg/dL (8.4-25.7); Calc. Creatinine Clearance 52 mL/min (70-130); Calcium 8.7 mg/dL (7.8-10.44); Carbon Dioxide 23 mmol/L (23-31); Chloride 111 mmol/L (98-107); Estimated GFR 73; Glucose 166 mg/dL (83-110); Magnesium 2.3 mg/dL (1.6-2.6); Potassium 4.1 mmol/L (3.5-5.1); Sodium 143 mmol/L (136-145)
[2022-12-10] MEDS ORDERED: Sodium Phosphate 30 MMOL in Sodium Chloride 0.9% 250 ML 250 ML IVPB SCH (09:00)
[2022-12-10] MEDS: Loratadine 10 MG TAB PO SCH (09:42)
[2022-12-10] MEDS: Metoprolol Tartrate 25 MG TAB PO SCH ×2 (09:42→21:15)
[2022-12-10] MEDS: Apixaban 2.5 MG TAB PO SCH ×2 (09:42→21:17)
[2022-12-10] MEDS: Tamsulosin HCl 0.4 MG CAP PO SCH (21:15)
[2022-12-10] MEDS: Finasteride 5 MG TAB PO SCH (21:17)
[2022-12-11] MEDS: Ipratropium/Albuterol 3 ML NEB NEB SCH ×5 (03:52→19:38)
[2022-12-11 06:26] LABS: #Eosinphils 0.3 thou/uL (0.0-0.7); #Lymphocytes 1.3 thou/uL (1.20-3.40); #Monocytes 0.8 thou/uL (0.11-0.59); #Neutrophils 6.4 thou/uL (1.40-6.50); %Eosinophils 2.9 % (0.0-10.0); %Monocytes 9.1 % (0.0-10.0); Hemoglobin 8.7 g/dL (14.0-18.0); Mean Corpuscular HGB CONC 33.5 g/dL (32.0-36.0); Mean Corpuscular Hemoglobin 34.8 pg (27.0-31.0); Platelet Count 176 10x3/uL (130-400); RBC Distribution Width 12.4 % (11.5-14.5); Red Blood Cell (RBC) Count 2.49 mill/uL (4.70-6.10); White Blood Cell (WBC) Count 8.8 10x3/uL (4.8-10.8)
[2022-12-11] MEDS: Acetaminophen 500 MG TAB PO SCH ×4 (06:32→17:41)
[2022-12-11 06:45] LABS: Anion Gap 12 mmol/L (10-20); BUN (Urea Nitrogen) 36 mg/dL (8.4-25.7); Calc. Creatinine Clearance 64 mL/min (70-130); Calcium 8.7 mg/dL (7.8-10.44); Carbon Dioxide 26 mmol/L (23-31); Chloride 110 mmol/L (98-107); Estimated GFR 84; Glucose 109 mg/dL (83-110); Phosphorus 2.4 mg/dL (2.3-4.7); Potassium 4.1 mmol/L (3.5-5.1); Sodium 144 mmol/L (136-145)
[2022-12-11] MEDS: Apixaban 2.5 MG TAB PO SCH ×2 (09:41→20:43)
[2022-12-11] MEDS: Loratadine 10 MG TAB PO SCH (09:41)
[2022-12-11] MEDS: Metoprolol Tartrate 25 MG TAB PO SCH ×2 (09:41→20:43)
[2022-12-11] MEDS ORDERED: PHOS-NAK 1 PKT PACK PO SCH (12:00)
[2022-12-11] MEDS: Finasteride 5 MG TAB PO SCH (20:42)
[2022-12-11] MEDS: Tamsulosin HCl 0.4 MG CAP PO SCH (20:43)
[2022-12-11] MEDS ORDERED: Mirtazapine 15 MG Soltab PO SCH (21:00)
[2022-12-12] MEDS: Acetaminophen 500 MG TAB PO SCH ×5 (00:44→23:53)
[2022-12-12] MEDS: Ipratropium/Albuterol 3 ML NEB NEB SCH ×3 (08:46→18:59)
[2022-12-12] MEDS: Furosemide 20 MG TAB PO SCH (10:10)
[2022-12-12] MEDS: Apixaban 2.5 MG TAB PO SCH ×2 (10:10→21:24)
[2022-12-12] MEDS: Loratadine 10 MG TAB PO SCH (10:10)
[2022-12-12] MEDS: Metoprolol Tartrate 25 MG TAB PO SCH ×2 (10:11→21:21)
[2022-12-12] MEDS ORDERED: Mirtazapine 15 MG TAB PO PRN (18:30)
[2022-12-12] MEDS: Finasteride 5 MG TAB PO SCH (21:21)
[2022-12-12] MEDS: Tamsulosin HCl 0.4 MG CAP PO SCH (21:21)
[2022-12-13 05:06] VITALS: TEMP 97.6
[2022-12-13] MEDS: Acetaminophen 500 MG TAB PO SCH (06:19)
[2022-12-13] MEDS: Ipratropium/Albuterol 3 ML NEB NEB SCH (06:51)
[2022-12-13 08:57] VITALS: BP 110/62
[2022-12-13] MEDS: Furosemide 20 MG TAB PO SCH (09:10)
[2022-12-13] MEDS: Loratadine 10 MG TAB PO SCH (09:10)
[2022-12-13] MEDS: Apixaban 2.5 MG TAB PO SCH (09:11)
[2022-12-13] MEDS: Metoprolol Tartrate 25 MG TAB PO SCH (09:11)
== END 2022-12-13 10:15 | DRG 481 ==
LOC: ERS 06:01 → SURG B 07:57
PROVIDERS: ADMIT Surgery; ATTEND Surgery
PROC: 0QS604Z Reposition Right Upper Femur with Internal Fixation Device, Open Approach (ICD-10-PCS; principal; 2022-12-08)
DX: S72.141A Displaced intertrochanteric fracture of right femur, initial encounter for closed fracture (principal); E27.40 Unspecified adrenocortical insufficiency; G93.49 Other encephalopathy; Z20.822 Contact with and (suspected) exposure to COVID-19; Z23 Encounter for immunization; F03.C0 Unspecified dementia, severe, without behavioral disturbance, psychotic disturbance, mood disturbance, and anxiety; N40.0 Benign prostatic hyperplasia without lower urinary tract symptoms; I87.2 Venous insufficiency (chronic) (peripheral); I48.91 Unspecified atrial fibrillation; W06.XXXA Fall from bed, initial encounter; Y92.003 Bedroom of unspecified non-institutional (private) residence as the place of occurrence of the external cause; Z95.0 Presence of cardiac pacemaker; Z90.49 Acquired absence of other specified parts of digestive tract; Z98.890 Other specified postprocedural states; Z79.899 Other long term (current) drug therapy; Z79.01 Long term (current) use of anticoagulants; Z85.118 Personal history of other malignant neoplasm of bronchus and lung
CPT/HCPCS: 36415; 36600; 51702; 70450; 71045; 71250; 72170; 80048; 80053; 81003; 82533; 82805; 83735; 83880; 84100; 84145; 85014; 85018; 85025; 85610; 85730; 86850; 86900; 86901; 87040; 90714; 93005; 94640; 96372; C1713; J1100; J1720; J3475; J3486; J3490; J7050; J7620; P9045; S0028; U0002

== ENCOUNTER 2022-12-15 10:00 | Inpatient (IN) | payer MEDICARE ==
[2022-12-15] MEDS ORDERED: Cefepime 2 GM VIAL ONE (10:58)
[2022-12-15] MEDS ORDERED: Ondansetron PF 4 MG/2 ML Vial ONE (10:58)
[2022-12-15 11:09] LABS: Hemoglobin 10.2 g/dL (14.0-18.0); Mean Corpuscular HGB CONC 32.4 g/dL (32.0-36.0); Mean Corpuscular Hemoglobin 33.5 pg (27.0-31.0); Platelet Count 330 10x3/uL (130-400); Red Blood Cell (RBC) Count 3.05 mill/uL (4.70-6.10); White Blood Cell (WBC) Count 22.9 10x3/uL (4.8-10.8)
[2022-12-15] MEDS ORDERED: Ampicillin 2 GM in Sodium Chloride 0.9% 100 ML IVPB SCH (11:15)
[2022-12-15 11:21] LABS: Acetaminophen Less than 10.0 mcg/mL (10.0-30.0); Alcohol Less than 10 mg/dL (Less than 10); PTT 32.5 sec (22.9-36.1); Prothrombin Time 23.4 sec (12.0-14.7); Salicylate Less than 8.0 mg/dL (15.0-30.0)
[2022-12-15 11:22] LABS: ALT (SGPT) 28 U/L (8-55); AST (SGOT) 17 U/L (5-34); Albumin 3.4 g/dL (3.4-4.8); Alkaline Phosphatase 59 U/L (40-110); Anion Gap 18 mmol/L (10-20); BUN (Urea Nitrogen) 70 mg/dL (8.4-25.7); Bilirubin, Total 2.5 mg/dL (0.2-1.2); Calc. Creatinine Clearance 0 mL/min (70-130); Calcium 8.4 mg/dL (7.8-10.44); Carbon Dioxide 25 mmol/L (23-31); Chloride 104 mmol/L (98-107); Estimated GFR 29; Globulin 2.5 g/dL (2.4-3.5); Glucose 213 mg/dL (83-110); Potassium 4.4 mmol/L (3.5-5.1); Protein, Total 5.9 g/dL (5.8-8.1); Sodium 143 mmol/L (136-145)
[2022-12-15] MEDS ORDERED: VANCOMYCIN 2 GRAM/500 ML BAG 2 GM in Premix Bag 1 BAG IVPB SCH (11:30)
[2022-12-15 11:41] LABS: SARS-CoV-2 NAA Rapid Test Not Detected (NotDetected)
[2022-12-15 11:57] LABS: Lymphocytes 2 % (21-51); MDiff Complete? YES; Macrocytosis SLIGHT = 6-15 cells (100X) (0-5/hpf); Monocytes 5 % (0-10); Neutrophil 93 % (42-75); Platelet Morphology Comment Appears Adequate
[2022-12-15 12:38] LABS: Bacteria/HPF 3+ HPF (None Seen); Bilirubin Negative (Negative); Blood, Urine Trace (Negative); Clarity Clear (Clear); Glucose, Urine (Dipstick) Normal (Negative); Ketone, Urine Negative (Negative); Leukocyte Negative Leu/uL (Negative); Nitrite Negative (Negative); Protein, Urine (Dipstick) Negative (Neg-Trace); Specific Gravity, Urine 1.019 (1.002-1.036); Squamous Epithelial 0-3 HPF (0-3); WBC/HPF 0-3 HPF (0-3); pH, Urine 6.5 (5.0-9.0)
[2022-12-15] MEDS ORDERED: Ondansetron PF 4 MG/2 ML Vial IVP PRN (12:54)
[2022-12-15] MEDS ORDERED: Bisacodyl 10 MG SUPP PR PRN (12:54)
[2022-12-15] MEDS ORDERED: Acetaminophen 325 MG TAB PO PRN (12:54)
[2022-12-15] MEDS ORDERED: Bisacodyl 5 MG TAB PO PRN (12:54)
[2022-12-15] MEDS ORDERED: Pantoprazole 40 MG VIAL IVP SCH (13:15)
[2022-12-15 15:14] VITALS: BMI 24.4
[2022-12-15] MEDS: Lactated Ringer's 1,000 ML IV SCH (15:26)
[2022-12-15] MEDS ORDERED: Vancomycin Dose by Levels Sliding Scale (Wt 71-99) FS SCH (15:30)
[2022-12-15 15:31] LABS: Legionella Urinary Ag Negative (Negative); Strep pneumo Urine Ag NEGATIVE (NEGATIVE)
[2022-12-15 15:33] LABS: Lactic Acid 1.4 mmol/L (0.5-2.2)
[2022-12-15] MEDS: Azithromycin 500 MG in Sodium Chloride 0.9% 250 ML 250 ML IVPB SCH (17:43)
[2022-12-15] MEDS ORDERED: Cefepime 2 GM in Sodium Chloride 0.9% 100 ML IVPB SCH (21:00)
[2022-12-15] MEDS ORDERED: Vancomycin 1 GM in Premix Bag 1 BAG IVPB SCH (21:00)
[2022-12-15] MEDS: Senokot S 8.6-50 MG TAB PO SCH (22:32)
[2022-12-15] MEDS: Pantoprazole 40 MG VIAL IVP SCH (22:35)
[2022-12-16] MEDS: Lactated Ringer's 1,000 ML IV SCH ×3 (03:27→16:40)
[2022-12-16 05:32] LABS: #Lymphocytes 0.8 thou/uL (1.20-3.40); #Monocytes 1.2 thou/uL (0.11-0.59); #Neutrophils 16.3 thou/uL (1.40-6.50); %Eosinophils 0.1 % (0.0-10.0); %Lymphocytes 4.6 % (21.0-51.0); %Monocytes 6.3 % (0.0-10.0); %Neutrophils 89.1 % (42.0-75.0); Hemoglobin 8.6 g/dL (14.0-18.0); Mean Corpuscular HGB CONC 32.8 g/dL (32.0-36.0); Mean Corpuscular Hemoglobin 34.5 pg (27.0-31.0); Mean Platelet Volume 7.6 fL (7.4-10.4); Platelet Count 299 10x3/uL (130-400); Red Blood Cell (RBC) Count 2.48 mill/uL (4.70-6.10); White Blood Cell (WBC) Count 18.3 10x3/uL (4.8-10.8)
[2022-12-16 05:34] LABS: Reticulocyte Count 2.7 % (0.5-1.5)
[2022-12-16 05:37] LABS: Hemoglobin A1c 5.6 % (4.0-6.0)
[2022-12-16 05:43] LABS: INR-International Normal Ratio 1.8; PTT 30.7 sec (22.9-36.1); Prothrombin Time 22.1 sec (12.0-14.7)
[2022-12-16 05:57] LABS: Iron 11 ug/dL (65-175); Iron Binding Capacity, Total 116 mcg/dL (261-462)
[2022-12-16 06:07] LABS: ALT (SGPT) 17 U/L (8-55); AST (SGOT) 15 U/L (5-34); Albumin 2.7 g/dL (3.4-4.8); Alkaline Phosphatase 49 U/L (40-110); Anion Gap 12 mmol/L (10-20); BUN (Urea Nitrogen) 67 mg/dL (8.4-25.7); Bilirubin, Direct 0.8 mg/dL (0.1-0.3); Bilirubin, Total 1.8 mg/dL (0.2-1.2); Calc. Creatinine Clearance 33 mL/min (70-130); Calcium 8.1 mg/dL (7.8-10.44); Carbon Dioxide 25 mmol/L (23-31); Chloride 112 mmol/L (98-107); Estimated GFR 41; Glucose 143 mg/dL (83-110); Iron 13 ug/dL (65-175); Iron Binding Capacity, Total 119 mcg/dL (261-462); Magnesium 2.2 mg/dL (1.6-2.6); Potassium 4.2 mmol/L (3.5-5.1); Sodium 145 mmol/L (136-145)
[2022-12-16 06:22] LABS: Ferritin 334.77 ng/mL (22-322)
[2022-12-16] MEDS: Senokot S 8.6-50 MG TAB PO SCH ×2 (09:24→21:21)
[2022-12-16] MEDS: Pantoprazole 40 MG VIAL IVP SCH ×2 (09:24→21:20)
[2022-12-16] MEDS ORDERED: Scopolamine 1.5 mg/72 hour Patch TD SCH (10:30)
[2022-12-16] MEDS: Cefepime 1 GM in Sodium Chloride 0.9% 100 ML IVPB SCH (11:44)
[2022-12-16 11:51] LABS: Vancomycin, Random 11.9 ug/mL (See Comment)
[2022-12-16] MEDS ORDERED: Vancomycin HCl 750 MG in Sodium Chloride 0.9% 250 ML 250 ML IVPB SCH (13:00)
[2022-12-16] MEDS ORDERED: Lorazepam 2 MG/ML VIAL SLOW IVP PRN (14:05)
[2022-12-16] MEDS ORDERED: Acetaminophen 650 MG Suppository PR PRN (14:06)
[2022-12-16] MEDS: Azithromycin 500 MG in Sodium Chloride 0.9% 250 ML 250 ML IVPB SCH (16:40)
[2022-12-17] MEDS: Lactated Ringer's 1,000 ML IV SCH ×2 (03:55→14:55)
[2022-12-17 06:22] LABS: #Eosinphils 0.2 thou/uL (0.0-0.7); #Lymphocytes 0.9 thou/uL (1.20-3.40); #Neutrophils 10.8 thou/uL (1.40-6.50); %Basophils 0.1 % (0.0-1.0); %Eosinophils 1.2 % (0.0-10.0); %Lymphocytes 7.2 % (21.0-51.0); %Monocytes 7.7 % (0.0-10.0); %Neutrophils 83.8 % (42.0-75.0); Hemoglobin 8.1 g/dL (14.0-18.0); Mean Corpuscular HGB CONC 31.9 g/dL (32.0-36.0); Mean Corpuscular Hemoglobin 33.5 pg (27.0-31.0); Mean Platelet Volume 7.5 fL (7.4-10.4); Platelet Count 281 10x3/uL (130-400); RBC Distribution Width 12.9 % (11.5-14.5); White Blood Cell (WBC) Count 12.9 10x3/uL (4.8-10.8)
[2022-12-17 06:28] LABS: INR-International Normal Ratio 1.4; PTT 32.3 sec (22.9-36.1); Prothrombin Time 17.5 sec (12.0-14.7)
[2022-12-17 06:40] LABS: Anion Gap 12 mmol/L (10-20); BUN (Urea Nitrogen) 47 mg/dL (8.4-25.7); Calc. Creatinine Clearance 62 mL/min (70-130); Calcium 8.2 mg/dL (7.8-10.44); Carbon Dioxide 23 mmol/L (23-31); Chloride 114 mmol/L (98-107); Estimated GFR 83; Glucose 95 mg/dL (83-110); Magnesium 2.1 mg/dL (1.6-2.6); Potassium 3.9 mmol/L (3.5-5.1); Sodium 145 mmol/L (136-145)
[2022-12-17] MEDS: Pantoprazole 40 MG VIAL IVP SCH ×2 (09:50→20:56)
[2022-12-17] MEDS: Senokot S 8.6-50 MG TAB PO SCH ×2 (09:50→19:48)
[2022-12-17] MEDS: Lorazepam 2 MG/ML VIAL SLOW IVP PRN ×3 (11:00→19:07)
[2022-12-17] MEDS ORDERED: Cefepime 1 GM in Sodium Chloride 0.9% 100 ML IVPB SCH ×2 (11:15→23:00)
[2022-12-17] MEDS: Cefepime 1 GM in Sodium Chloride 0.9% 100 ML IVPB SCH (12:28)
[2022-12-17] MEDS ORDERED: Scopolamine 1.5 mg/72 hour Patch TD SCH ×2 (14:15→14:45)
[2022-12-17] MEDS: Azithromycin 500 MG in Sodium Chloride 0.9% 250 ML 250 ML IVPB SCH (14:54)
[2022-12-17 15:06] LABS: Vancomycin, Random 7.5 ug/mL (See Comment)
[2022-12-18] MEDS: Lactated Ringer's 1,000 ML IV SCH ×2 (00:54→09:47)
[2022-12-18] MEDS: Lorazepam 2 MG/ML VIAL SLOW IVP PRN ×2 (00:55→07:47)
[2022-12-18 06:01] LABS: #Eosinphils 0.1 thou/uL (0.0-0.7); #Lymphocytes 0.9 thou/uL (1.20-3.40); #Monocytes 0.9 thou/uL (0.11-0.59); %Basophils 0.1 % (0.0-1.0); %Eosinophils 1.2 % (0.0-10.0); %Lymphocytes 7.6 % (21.0-51.0); %Monocytes 7.8 % (0.0-10.0); %Neutrophils 83.3 % (42.0-75.0); Hemoglobin 8.7 g/dL (14.0-18.0); Mean Corpuscular HGB CONC 33.1 g/dL (32.0-36.0); Mean Corpuscular Hemoglobin 34.2 pg (27.0-31.0); Mean Platelet Volume 7.3 fL (7.4-10.4); Platelet Count 285 10x3/uL (130-400); RBC Distribution Width 12.6 % (11.5-14.5); Red Blood Cell (RBC) Count 2.54 mill/uL (4.70-6.10)
[2022-12-18 06:10] LABS: INR-International Normal Ratio 1.4; PTT 31.3 sec (22.9-36.1); Prothrombin Time 17.3 sec (12.0-14.7)
[2022-12-18 06:24] LABS: Anion Gap 13 mmol/L (10-20); BUN (Urea Nitrogen) 30 mg/dL (8.4-25.7); Calc. Creatinine Clearance 69 mL/min (70-130); Calcium 8.4 mg/dL (7.8-10.44); Carbon Dioxide 23 mmol/L (23-31); Chloride 112 mmol/L (98-107); Estimated GFR 86; Glucose 84 mg/dL (83-110); Magnesium 1.7 mg/dL (1.6-2.6); Potassium 3.4 mmol/L (3.5-5.1); Sodium 145 mmol/L (136-145)
[2022-12-18 08:59] VITALS: BP 157/92; TEMP 97.9
[2022-12-18] MEDS: Senokot S 8.6-50 MG TAB PO SCH (09:43)
[2022-12-18] MEDS: Pantoprazole 40 MG VIAL IVP SCH (09:48)
[2022-12-18 21:36] LABS: Mycoplasma pneumoniae IgG AB 1800 U/mL (0-99); Mycoplasma pneumoniae IgM AB Less than 770 U/mL (0-769)
== END 2022-12-18 11:30 | disposition hospice, home (50) | DRG 871 ==
LOC: SUATTDRO 10:00 → ERS 10:00 → 2NO 13:00 → MSONC 12-16 16:12
PROVIDERS: ADMIT Family Medicine; ATTEND Family Medicine
DX: A41.9 Sepsis, unspecified organism (principal); J18.9 Pneumonia, unspecified organism; I48.20 Chronic atrial fibrillation, unspecified; N39.0 Urinary tract infection, site not specified; C34.90 Malignant neoplasm of unspecified part of unspecified bronchus or lung; K92.0 Hematemesis; N17.9 Acute kidney failure, unspecified; Z20.822 Contact with and (suspected) exposure to COVID-19; F03.C0 Unspecified dementia, severe, without behavioral disturbance, psychotic disturbance, mood disturbance, and anxiety; Z66 Do not resuscitate; Z51.5 Encounter for palliative care; I10 Essential (primary) hypertension; D64.9 Anemia, unspecified; N40.0 Benign prostatic hyperplasia without lower urinary tract symptoms; Z90.49 Acquired absence of other specified parts of digestive tract; Z95.0 Presence of cardiac pacemaker; Z79.01 Long term (current) use of anticoagulants; Z79.899 Other long term (current) drug therapy
CPT/HCPCS: 36415; 70450; 71045; 74176; 80048; 80053; 80076; 80202; 80307; 81002; 81003; 81015; 82274; 82607; 82728; 83036; 83540; 83550; 83605; 83735; 84443; 84484; 85025; 85046; 85610; 85730; 86850; 86900; 86901; 87040; 87077; 87081; 87086; 87186; 87449; 87899; 93005; 93306; 94760; C9113; J0290; J0456; J0692; J1956; J2060; J2405; J3370; J3490; J7030; J7050; J7120; U0002